=== PATIENT | male | born 1940 | race Caucasian/White ===

== ENCOUNTER 2017-01-02 16:30 | Emergency (ER) | payer MEDICARE, SELFPAY ==
[2017-01-02 17:11] LABS: BASO % 0.3 % (0.2-1.2); EOS # 0.1 10_X3_uL (0.0-0.5); EOS % 1.4 % (0.8-7.0); GRAN # 6.3 10_X3_uL (1.8-5.4); GRAN % 63.5 % (34.0-67.9); HEMATOCRIT 46.8 % (40-51); HEMOGLOBIN 14.8 g/dL (13.7-17.5); LYMPH # 2.2 10_X3_uL (1.3-3.6); LYMPH % 22.5 % (21.8-53.1); MEAN CORPUSCULAR HEMOGLOBIN 27.7 pg (27.0-33.0); MEAN CORPUSCULAR HGB CONC 31.6 g/dL (32.0-36.0); MEAN CORPUSCULAR VOLUME 87.6 fL (79-92); MEAN PLATELET VOLUME 10.8 fl (7.5-11.5); MONO # 1.2 10_X3_uL (0.3-0.8); MONO % 12.3 % (5.3-12.2); PLATELET COUNT 193 x10_3/uL (163-337); RED BLOOD COUNT 5.34 x10_6/uL (4.6-6.1); RED CELL DISTRIBUTION WIDTH 15.3 % (11.6-14.4); WHITE BLOOD COUNT 9.9 x10_3/uL (4.2-9.1)
[2017-01-02 17:30] LABS: ALKALINE PHOSPHATASE 77 U/L (50-136); ALT/SGPT 20 U/L (7.53-40.17); AST/SGOT 20 U/L (6.66-35.34); BILIRUBIN,TOTAL 0.38 mg/dL (0.0-1.0); CARBON DIOXIDE 29 mmol/L (21-32); CREATINE KINASE 59 U/L (35-232); CREATININE 1.1 mg/dL (0.6-1.3); GLUCOSE,RANDOM 126 mg/dL (70-99); POTASSIUM 3.8 mmol/L (3.5-5.1); SODIUM 145 mmol/L (136-145)
[2017-01-02 17:31] LABS: BLOOD UREA NITROGEN 19 mg/dL (7-18)
== END 2017-01-02 18:56 | disposition home or self-care (01) ==
LOC: ER 16:30
PROVIDERS: Internal Medicine
DX: R07.89 Other chest pain (principal); I25.10 Atherosclerotic heart disease of native coronary artery without angina pectoris; Z95.1 Presence of aortocoronary bypass graft; Z88.1 Allergy status to other antibiotic agents
CPT/HCPCS: 36415; 71010; 80053; 82550; 82553; 85025; 93005; 99070; 99284; 99285-25

== ENCOUNTER 2017-02-25 17:49 | Emergency (ER) | payer MEDICARE, OTHER ==
[2017-02-25 18:23] LABS: BASO % 0.3 % (0.2-1.2); EOS # 0.2 10_X3_uL (0.0-0.5); EOS % 2.1 % (0.8-7.0); GRAN # 6.3 10_X3_uL (1.8-5.4); GRAN % 61.1 % (34.0-67.9); HEMATOCRIT 48.3 % (40-51); HEMOGLOBIN 15.2 g/dL (13.7-17.5); LYMPH # 2.5 10_X3_uL (1.3-3.6); LYMPH % 24.1 % (21.8-53.1); MEAN CORPUSCULAR HEMOGLOBIN 27.3 pg (27.0-33.0); MEAN CORPUSCULAR HGB CONC 31.5 g/dL (32.0-36.0); MEAN CORPUSCULAR VOLUME 86.9 fL (79-92); MONO # 1.3 10_X3_uL (0.3-0.8); MONO % 12.4 % (5.3-12.2); PLATELET COUNT 205 x10_3/uL (163-337); RED BLOOD COUNT 5.56 x10_6/uL (4.6-6.1); RED CELL DISTRIBUTION WIDTH 15.3 % (11.6-14.4); WHITE BLOOD COUNT 10.3 x10_3/uL (4.2-9.1)
== END 2017-02-25 20:05 | disposition home or self-care (01) ==
LOC: ER 17:49
PROVIDERS: General Practice
DX: M51.34 Other intervertebral disc degeneration, thoracic region (principal); M48.04 Spinal stenosis, thoracic region; G89.29 Other chronic pain; M54.9 Dorsalgia, unspecified; Z79.899 Other long term (current) drug therapy; Z79.02 Long term (current) use of antithrombotics/antiplatelets; Z88.1 Allergy status to other antibiotic agents; Z88.8 Allergy status to other drugs, medicaments and biological substances
CPT/HCPCS: 36415; 72128; 72131; 74150; 85025; 96372; 99283; 99283-25